=== PATIENT | male | born 1995 | race Caucasian/White ===

== ENCOUNTER 2017-01-18 11:31 | Emergency (ER) | payer BC ==
[2017-01-18 11:47] VITALS: BP 136/65
--- NOTE | 2017-01-18 12:23 | UC ---
Throat Pain/Nasal [place] HPI - HPI Summary HPI Summary: Fever & poor appetite since Thursday. Yesterday, sore throat started. Body aches 5 days ago. Was getting better but over the past 24 hours developed sore throat with white patches and significant sinus pressure [ End ] - History of Current Complaint Chief Complaint: UCGeneralIllness Stated Complaint: FEVER,SORE THROAT Time Seen by Provider: 01/18/17 12:21 Hx Obtained From: Patient Onset/Duration: Gradual Onset Cough: Nonproductive - Allergies/Home Medications Allergies/Adverse Reactions: Allergies Allergy/AdvReac Type Severity Reaction Status Date / Time No Known Allergies Allergy Verified 01/18/17 11:41 Home Medications: Home Medications Acetaminophen TAB* [Tylenol TAB*] 975 mg PO Q4H PRN 01/18/17 [History Confirmed 01/18/17] Ibuprofen TAB* [Advil TAB*] 400 mg PO Q6H PRN 01/18/17 [History Confirmed ] PMH/Surg Hx/FS Hx/Imm Hx Previously Healthy: Yes Endocrine History Of: Denies: Diabetes - Surgical History Surgical History: None - Social History Occupation: Student - [employer] Lives: With Family Alcohol Use: Rare Substance Use Type: None Smoking Status (MU): Never Smoked Tobacco Type: Smokeless Tobacco Amount Used/How Often: can weekly Review of Systems Constitutional: Fever, Chills, Fatigue Skin: Negative Eyes: Negative ENT: Sore Throat, Ear Ache, Nasal Discharge, Other - sinus pressure Respiratory: Negative Cardiovascular: Negative Gastrointestinal: Negative Genitourinary: Negative Motor: Negative Neurovascular: Negative Musculoskeletal: Negative Neurological: Negative Psychological: Negative All Other Systems Reviewed And Are Negative: Yes Physical Exam Triage Information Reviewed: Yes Appearance: Well-Appearing, No Pain Distress, Well-Nourished Vital Signs: Initial Vital Signs Temp 101.4 F 01/18/17 11:42 Pulse 76 01/18/17 11:42 Resp 16 01/18/17 11:42 BP 136/65 01/18/17 11:42 Pulse Ox 100 01/18/17 11:42 Vital Signs Reviewed: Yes Eye Exam: Normal ENT: Positive: Hearing grossly normal, Pharyngeal erythema, Nasal congestion, Nasal drainage, TMs normal, Tonsillar swelling, Tonsillar exudate, Other: - bilateral frontal sinus tenderness to palpation. Dental Exam: Normal Neck exam: Normal Neck: Positive: 1 Respiratory Exam: Normal Cardiovascular Exam: Normal Musculoskeletal Exam: Normal Neurological Exam: Normal Psychological Exam: Normal Skin Exam: Normal Throat Pain/Nasal Course/Dx - Course Course Of Treatment: Treat as viral at this time. Neg Strep. If Sx persist or worsen for 3 more days that will be > 1 week since onset of initial Sx and can then start augmentin he is aware and agreeable - Differential Dx/Diagnosis Differential Diagnosis/HQI/PQRI: Pharyngitis, Tonsillitis, URI Provider Diagnoses: Pharyngitis / Sinusitis Discharge - Discharge Plan Condition: Good Disposition: HOME Prescriptions: Amoxicillin/Clavulanate TAB* [Augmentin TAB 875*] 875 mg PO BID #20 tab Patient Education Materials: Sinusitis (ED) Referrals: Non Staff,Doctor [Primary Care Provider] - 3 Days Additional Instructions: Please use DayQuil , NyQuil and Flonase for the next 2-3 days and if your symptoms worsen then please start the antibiotic. Your strep testing was negative today.
== END 2017-01-18 12:57 | disposition home or self-care (01) ==
LOC: UCCORT 11:31
DX: J02.9 Acute pharyngitis, unspecified (principal); J32.9 Chronic sinusitis, unspecified
CPT/HCPCS: 87651; 99212; G0463